=== PATIENT | female | born 1955 | race Caucasian/White ===

== ENCOUNTER 2021-02-27 08:15 | Outpatient (RCR) | payer MEDICARE, SELFPAY ==
[2021-02-13 08:08] VITALS: TEMP 36.5
--- NOTE | 2021-02-13 15:00 | HP.PCM_ITS ---
History of Present Illness Date of Service: 02/13/21 Chief Complaint: nonhealing wound right buttock History of Wound: Kelly is a 66 yo woman that presents the wound healing center today for evaluation and treatment of a nonhealing wound to her right buttock. She is referred by Parviz Mon CNP. Kelly reports that this started as a rash that then developed into what wounds like a draining abscess approximately 6 weeks ago. She was seen initially at the ER in [place] and was treated with antibiotic (Bactrim) with some improvement but continued open wound after the area drained. She was seen at urgent care and advised to use Hibiclens once weekly and apply mupirocin ointment to the wound daily. Bactrim was again prescribed and she completed this approximately 1 week ago. The wound still remained open so she sought the care of her PCP who performed a wound culture and referred her here for further treatment and evaluation. She reports there is mild drainage from the wound, no odor. Denies fever or chills. She has not had any problems with healing wounds in the past. She follows a mainly vegan diet. She has been avoiding pressure to her buttock, mainly because of pain with sitting and pressure to the area. [facility] Medical History (Updated 02/13/21 @ 15:[address] Kristin Meyer DO) MRSA cellulitis Home Medications metoprolol succinate 1 PO DAILY 02/13/21 [History Last Taken 02/13/21 07:00] Allergy/AdvReac Type Severity Reaction Status Date / Time No Known Allergies Allergy Verified 02/13/21 15:17 no significant family history no surgical history Social History (Updated 02/13/21 @ 15:[address] Kristin Meyer DO) household members: none current occupational status: retired current gender identity: female Smoking Status: Never smoker alcohol intake: never substance use type: does not use diet: vegan ROS Constitutional Constitutional: Denies chills, fever(s) or headache(s) Eyes Eyes: Denies blurry vision or loss of vision ENT HEENT: Denies dizziness or headache(s) Cardiovascular Cardiovascular: Denies chest pain, dizziness, dyspnea, edema or palpitations Respiratory/Chest Respiratory/Chest: Denies cough or dyspnea Gastrointestinal Gastrointestinal: Reports loose stools; Denies abdominal pain, diarrhea, nausea, rectal bleeding or vomiting Genitourinary Genitourinary: Denies dysuria or polyuria Musculoskeletal Musculoskeletal: Denies joint pain Integumentary Integumentary: Reports wounds Neurologic Neurologic: Denies dizziness, memory loss or weakness Psychiatric Psychiatric: Denies suicidal thoughts Endocrine Endocrinology: Denies polydipsia, polyphagia or polyuria Hematologic/Lymphatic Hematologic/Lymphatic: Denies easy bleeding or easy bruising Vital Signs Vital Signs Vital Signs: 02/13/21 08:08 Temperature 97.7 F L Temperature Source Temporal Blood Pressure Source Monitor Blood Pressure Position Sitting Blood Pressure Location Left Arm Physical Exam Const alert, oriented x3, no apparent distress, healthy appearing and well nourished General Appearance: cooperative, comfortable and well developed HEENT normocephalic and head/scalp atraumatic Mouth: oral and palatal mucosa normal Eyes PERRL and EOMs intact bilaterally Neck no lymphadenopathy General: normal visual inspection Lymph Lymphatic: no lymphedema noted Resp normal respiratory effort Effort and Inspection: able to speak in complete sentences Auscultation: clear to auscultation bilaterally Cardio regular rate and regular rhythm GI soft to palpation and non-tender Skin Wounds: wounds noted Wound Narrative: as in clinical panel Neuro oriented x3 Psych thought process normal, cooperative and affect normal Debridement Note Debridement Note Post-Debridement Measurements and Additional Note: Post-Debridement Measurements/Treatment - Nurse 1 - General Ulcer Assessment Start: 02/13/21 08:08 Freq: Status: Active Protocol: [email or web address].[email or web address] Activity Type Activity Date Activity User E-Sign Co-Sign Detail Recorded Client Recorded Date Recorded By Document 02/13/21 08:08 CLAUDIA [id number] 02/13/21 08:27 CLAUDIA 02/13/21 08:08 - Today's Visit Information Type of service Follow-up 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 Any new allergies or adverse reactions No Had a fall/change in ADL's that may No increase risk of falls Signs or symptoms of abuse and/or No neglect since last visit Have you been in the hospital since your No last visit? Has dressing in place as prescribed Yes Has compression in place as prescribed N/A Has offloadiing in place as prescribed N/A Experienced any changes in pain level or No management Left Footwear Regular Shoe Right Footwear Regular Shoe Pain Scale: 0-10 Numeric Is Patient Pain Free? Yes - Nurse 1 - General Ulcer Measurement Start: 02/13/21 08:08 Freq: Status: Active Protocol: Activity Type Activity Date Activity User E-Sign Co-Sign Detail Recorded Client Recorded Date Recorded By Document 02/13/21 08:08 KR [id number] 02/13/21 08:27 KR 02/13/21 08:08 Wound Center Nurse 1 #1 Right Buttock -Current Size (cm) - Length 0.7 -Current Size (cm) - Width 0.4 -Current Size (cm) - Depth 0.3 -Total Square Cm 0.28 -Exudate Amt Medium -Exudate Type Serosanguineous -Wound Margin Distinct, Outline Attached -Granulation Amt Medium (34-66%) -Granulation Quality Red -Necrosis Amt Medium (34-66%) -Necrotic Tissue Type Adherent Slough -Texture (Kimberly-wound Skin Appearance) Assessed, Scarring -Moisture (Kimberly-wound Skin Appearance) No Abnormality, Assessed -Color (Kimberly-wound Skin Appearance) No Abnormality, Assessed -Temperature (Kimberly-wound Skin No Abnormality Appearance) (Pt Warm) -Tenderness on Palpation (Kimberly-wound No Skin Appearance) -Ulcer Cleansing Rinsed/ Irrigated with Saline -Foul Odor after Cleansing No -Anesthetic Used 5% Lidocaine Gel - Nurse 2 - General Ulcer CM Notes Start: 02/13/21 08:08 Freq: Status: Active Protocol: Activity Type Activity Date Activity User E-Sign Co-Sign Detail Recorded Client Recorded Date Recorded By Document 02/13/21 08:48 MW [id number] 02/13/21 09:09 MW 02/13/21 08:48 Wound Center Nurse 2 -Time 08:48 -Correct Patient Yes -Correct Side, Site, Position Yes -Correct Procedure Yes -Procedure Performed Yes -Type of Procedure Debridement -Clinical Debridement Subcutaneous -Tissue Removed Subcutaneous -Post Debridement (cm) - Length 0.9 -Post Debridement (cm) - Width 0.7 -Post Debridement (cm) - Depth 0.5 -Total Square (Post) (cm) 0.63 -Area of Debridement (cm) - Length 0.9 -Area of Debridement (cm) - Width 0.7 -Total Square (Area) (cm) 0.63 -Tunneling No -Undermining/Tunneling No -Circular Undermining No -Wound/Ulcer Outcome Not Healed -Ulcer Cleansing Rinsed/ Irrigated with Saline -Foul Odor after Cleansing No -Bioengineered Tissue No -Bleeding Controlled with Pressure -Offloading No -Treatment Response Procedure Tolerated Well -Debridement - Subq, 1st 20sq cm Yes Pain Scale: 0-10 Numeric Is Patient Pain Free? Yes - Nurse 3 - General Ulcer D/C NN Start: 02/13/21 08:08 Freq: Status: Active Protocol: Activity Type Activity Date Activity User E-Sign Co-Sign Detail Recorded Client Recorded Date Recorded By Document 02/13/21 09:17 MW [id number] 02/13/21 09:18 MW 02/13/21 09:17 Wound Care Nurse 3 #1 Right Buttock -Ulcer Cleansing Rinsed/ Irrigated with Saline -Foul Odor after Cleansing No -Negative Pressure Wound Therapy N/A -Primary Dressing Applied Promogran Nita Matter -Primary Dressing Covered/Secured with Dry Gauze, Secured with Tape -Promogran Nita Matter 1 Treatment Response Procedure Tolerated Well Pain Scale: 0-10 Numeric Is Patient Pain Free? Yes Teaching: Wound Center Dressing Your Wound -Person Taught Patient -Teaching Method Discussion, Demonstration -Response to teaching Verbalize understanding WC - Visit Discharge Discharge Condition Stable Ambulatory Status Ambulatory Transportation Private Auto Accompanied by self Medication Reconcilliation completed & No provided to patient/care provider Clinical Summary of Care Provided Yes Wound debrided: right buttock Laterality: Right Type of Debridement: Excisional debridement Anesthesia Used: 4% Lidocaine Solution and 5% Lidocaine Gel Depth: Down to and including healthy tissue and in the subcutaneous layer Percentage of wound debrided: 100 Instrument Used: 3mm curette Tissue Removed: Yellow slough, devitalized tissue Severity: Fat Layer Exposed Amount of bleeding with debridement: Mild Bleeding Controlled with: Compression and gauze Patient tolerated procedure: Patient tolerated procedure well Assessment/Plan Assessment/Plan (1) HTN (hypertension): CODE(S): I10 - Essential (primary) hypertension QUALIFIERS: Hypertension type: primary hypertension Qualified Code(s): I10 - Essential (primary) hypertension (2) Nonhealing nonsurgical wound with fat layer exposed: CODE(S): T14.8XXA - Other injury of unspecified body region, initial encounter (3) MRSA (methicillin resistant staph aureus) culture positive: CODE(S): Z22.322 - Carrier or suspected carrier of Methicillin resistant Staphylococcus aureus PLAN: Kelly's wound was evaluated and debrided today and wound culture from her PCP reviewed. Her wound was debrided today as above in clinical panel and is likely not healing well due to imbalance of moisture and possible unresolved infection. The cause of her wound was cellulitis and abscess from MRSA. Her wound will be dressed every other day with Nita and covered with gauze and tape. She was encouraged to increase protein intake and to avoid pressure to her buttock. She also was started on another course of Bactrim for positive wound cultures from last week from her PCP. She was advised to call with any fevers, chills, increased pain, drainage or odor. She will follow up in 1 week for wound care.
[2021-02-20 08:19] VITALS: BP 145/84; PULSE 62; RESP 18; TEMP 36.9
--- NOTE | 2021-02-20 10:20 | PN.PCM_ITS ---
History of Present Illness Date of Service: 02/20/21 Chief Complaint: nonhealing wound right buttock History of Wound: Kelly is a 66 yo woman that presents the wound healing center today for evaluation and treatment of a nonhealing wound to her right buttock. She is referred by Parviz Mon CNP. Kelyl reports that this started as a rash that then developed into what wounds like a draining abscess approximately 6 weeks ago. She was seen initially at the ER in [place] and was treated with antibiotic (Bactrim) with some improvement but continued open wound after the area drained. She was seen at urgent care and advised to use Hibiclens once weekly and apply mupirocin ointment to the wound daily. Bactrim was again prescribed and she completed this approximately 1 week ago. The wound still remained open so she sought the care of her PCP who performed a wound culture and referred her here for further treatment and evaluation. She reports there is mild drainage from the wound, no odor. Denies fever or chills. She has not had any problems with healing wounds in the past. She follows a mainly vegan diet. She has been avoiding pressure to her buttock, mainly because of pain with sitting and pressure to the area. Subjective Subjective Kelly is here today for follow up of a right buttock wound. She tolerated treatment with Nita to the wound and has been changing it every other day. She moistened it on when she changed it. She is tolerating antibiotic treatment. Denies any increased drainage, pain or erythema. Objective Data Objective Data Vital Signs: Vital Signs Temp Pulse Resp BP 98.4 F 62 18 145/84 H 02/20/21 08:19 02/20/21 08:19 02/20/21 08:19 02/20/21 08:19 Physical Exam Const alert, oriented x3, no apparent distress, healthy appearing and well nourished General Appearance: cooperative, comfortable and well developed HEENT normocephalic and head/scalp atraumatic Eyes PERRL and EOMs intact bilaterally Neck no lymphadenopathy General: normal visual inspection Lymph Lymphatic: no lymphedema noted Resp normal respiratory effort Effort and Inspection: able to speak in complete sentences Auscultation: clear to auscultation bilaterally Cardio regular rate and regular rhythm GI soft to palpation and non-tender Skin Wounds: wounds noted Wound Narrative: as in clinical panel Neuro oriented x3 Psych thought process normal, cooperative and affect normal Debridement Note Debridement Note Post-Debridement Measurements and Additional Note: Post-Debridement Measure ments/Treatment - Nurse 1 - General Ulcer Assessment Start: 02/13/21 08:08 Freq: Status: Active Protocol: ДМИТРИЙ Activity Type Activity Date Activity User E-Sign Co-Sign Detail Recorded Client Recorded Date Recorded By Document 02/13/21 08:08 KR [id number] 02/13/21 08:27 KR Document 02/20/21 08:19 DL [id number] 02/20/21 08:24 DL 02/13/21 02/20/21 08:08 08:19 WC - Today's Visit Information Type of service Follow-up Visit Follow-up Visit (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 (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 ) ) Arrival Mode Ambulatory Ambulatory Transfer Assistance None Patient Identification Verified (Name & Yes Yes ) Patient Requires Transmission-Based No Precautions Vital Signs Temperature (97.8 F-99.1 F) 97.7 F L 98.4 F Temperature Source Temporal Temporal Pulse Rate (60-100) 62 Pulse Location Monitor Monitor Respiratory Rate (12-18) 18 Respiratory rate source Observation Blood Pressure (90/60-120/80) 145/84 H Blood Pressure Mean (mm Hg) 104 Source Monitor Monitor Position Sitting Blood Pressure Location Left Arm History Since Last Visit- (Skip if this is Patient's initial visit) Have you changed medications since your No No last visit? Any new allergies or adverse reactions No No Had a fall/change in ADL's that may No No increase risk of falls Signs or symptoms of abuse and/or No No neglect since last visit Have you been in the hospital since your No No last visit? Has dressing in place as prescribed Yes Yes Has compression in place as prescribed N/A N/A Has offloadiing in place as prescribed N/A Yes Experienced any changes in pain level or No No management Left Footwear Regular Shoe Right Footwear Regular Shoe Pain Scale: 0-10 Numeric Is Patient Pain Free? Yes ABBIE - Nurse 1 - General Ulcer Measurement Start: 02/13/21 08:08 Freq: Status: Active Protocol: Activity Type Activity Date Activity User E-Sign Co-Sign Detail Recorded Client Recorded Date Recorded By Document 02/13/21 08:08 KR [id number] 02/13/21 08:27 KR Document 02/20/21 08:19 DL [id number] 02/20/21 08:24 DL 02/13/21 02/20/21 08:08 08:19 Wound Center Nurse 1 #1 Right Buttock -Current Size (cm) - Length 0.7 0.4 -Current Size (cm) - Width 0.4 0.3 -Current Size (cm) - Depth 0.3 0.4 -Total Square Cm 0.28 0.12 -Photo Taken No -Exudate Amt Medium Small -Exudate Type Serosanguineous Serosanguineous -Wound Margin Distinct, Distinct, Outline Outline Attached Attached -Granulation Amt Medium (34-66%) -Granulation Quality Red Hyper- granulation, [place] -Necrosis Amt Medium (34-66%) Small (1-33%) -Necrotic Tissue Type Adherent Slough Adherent Slough -Structure Exposed N/A -Texture (Kimberly-wound Skin Appearance) Assessed, Scarring Scarring -Moisture (Kimberly-wound Skin Appearance) No Abnormality, No Abnormality Assessed -Color (Kimberly-wound Skin Appearance) No Abnormality, Erythema Assessed -Temperature (Kimberly-wound Skin No Abnormality No Abnormality Appearance) (Pt Warm) (Pt Warm) -Tenderness on Palpation (Kimberly-wound No No Skin Appearance) -Ulcer Cleansing Rinsed/ Wound Cleanser Irrigated with Saline -Foul Odor after Cleansing No No -Anesthetic Used 5% Lidocaine 4% Lidocaine Gel Solution WC - Nurse 2 - General Ulcer CM Notes Start: 02/13/21 08:08 Freq: Status: Active Protocol: Activity Type Activity Date Activity User E-Sign Co-Sign Detail Recorded Client Recorded Date Recorded By Document 02/13/21 08:48 MW [id number] 02/13/21 09:09 MW Document 02/20/21 08:44 MW [id number] 02/20/21 08:52 MW 02/13/21 02/20/21 08:48 08:44 Wound Center Nurse 2 #1 Right Buttock -Time 08:48 08:44 -Correct Patient Yes Yes -Correct Side, Site, Position Yes Yes -Correct Procedure Yes Yes -Procedure Performed Yes Yes -Type of Procedure Debridement Debridement -Clinical Debridement Subcutaneous Subcutaneous -Tissue Removed Subcutaneous Subcutaneous -Post Debridement (cm) - Length 0.9 0.5 -Post Debridement (cm) - Width 0.7 0.3 -Post Debridement (cm) - Depth 0.5 0.2 -Total Square (Post) (cm) 0.63 0.15 -Area of Debridement (cm) - Length 0.9 0.5 -Area of Debridement (cm) - Width 0.7 0.3 -Total Square (Area) (cm) 0.63 0.15 -Tunneling No No -Undermining/Tunneling No No -Undermining/Tunneling Starts #2 (O' 7 clock) -Undermining/Tunneling Ends #2 (O' 12 clock) -Maximum Distance #2 (cm) 0.3 -Circular Undermining No No -Wound/Ulcer Outcome Not Healed Not Healed -Ulcer Cleansing Rinsed/ Rinsed/ Irrigated with Irrigated with Saline Saline -Foul Odor after Cleansing No No -Bioengineered Tissue No No -Bleeding Controlled with Pressure Pressure -Offloading No No -Treatment Response Procedure Procedure Tolerated Well Tolerated Well -Debridement - Subq, 1st 20sq cm Yes Yes Pain Scale: 0-10 Numeric Is Patient Pain Free? Yes Yes WC - Nurse 3 - General Ulcer D/C NN Start: 02/13/21 08:08 Freq: Status: Active Protocol: Activity Type Activity Date Activity User E-Sign Co-Sign Detail Recorded Client Recorded Date Recorded By Document 02/13/21 09:17 MW [id number] 02/13/21 09:18 MW Document 02/20/21 08:52 MW [id number] 02/20/21 08:53 MW 02/13/21 02/20/21 09:17 08:52 Wound Care Nurse 3 #1 Right Buttock -Ulcer Cleansing Rinsed/ Rinsed/ Irrigated with Irrigated with Saline Saline -Foul Odor after Cleansing No No -Negative Pressure Wound Therapy N/A N/A -Primary Dressing Applied Promogran Promogran Nita Matter Nita Matter -Primary Dressing Covered/Secured with Dry Gauze, Dry Gauze, Secured with Secured with Tape Tape -Promogran Niat Matter 1 1 Treatment Response Procedure Procedure Tolerated Well Tolerated Well Pain Scale: 0-10 Numeric Is Patient Pain Free? Yes Yes Teaching: Wound Center Dressing Your Wound -Person Taught Patient Patient -Teaching Method Discussion, Discussion Demonstration -Response to teaching Verbalize Verbalize understanding understanding WC - Visit Discharge Discharge Condition Stable Stable Ambulatory Status Ambulatory Ambulatory Transportation Private Auto Private Auto Accompanied by self self Medication Reconcilliation completed & No No provided to patient/care provider Clinical Summary of Care Provided Yes Yes Wound debrided: right buttock Laterality: Right Type of Debridement: Excisional debridement Anesthesia Used: 4% Lidocaine Solution and 5% Lidocaine Gel Depth: Down to and including healthy tissue and in the subcutaneous layer Percentage of wound debrided: 100 Instrument Used: 3mm curette Tissue Removed: Yellow slough, devitalized tissue Severity: Fat Layer Exposed Amount of bleeding with debridement: Mild Bleeding Controlled with: Pressure Patient tolerated procedure: Patient tolerated procedure well Assessment/Plan Assessment/Plan (1) HTN (hypertension): CODE(S): I10 - Essential (primary) hypertension QUALIFIERS: Hypertension type: primary hypertension Qualified Code(s): I10 - Essential (primary) hypertension (2) Nonhealing nonsurgical wound with fat layer exposed: CODE(S): T14.8XXA - Other injury of unspecified body region, initial encounter (3) MRSA (methicillin resistant staph aureus) culture positive: CODE(S): Z22.322 - Carrier or suspected carrier of Methicillin resistant Staphylococcus aureus PLAN: Kelly's wound was evaluated and debrided today and has decreased in size by half. Her wound was debrided today as above in clinical panel. The cause of her wound was cellulitis and abscess from MRSA. Her wound will continue to be dressed every other day with Nita for mild drainage and covered with gauze and tape. She was encouraged to increase protein intake and to avoid pressure to her buttock. She is tolerating Bactrim for positive wound cultures. She was advised to call with any fevers, chills, increased pain, drainage or odor. She will follow up in 1 week for wound care.
[2021-02-27 08:23] VITALS: BP 168/77; PULSE 60; RESP 18; TEMP 36.4
--- NOTE | 2021-02-27 09:58 | PN.PCM_ITS ---
History of Present Illness Date of Service: 02/27/21 Chief Complaint: nonhealing wound right buttock History of Wound: Kelly is a 66 yo woman that presents the wound healing center today for evaluation and treatment of a nonhealing wound to her right buttock. She is referred by Parviz Mno CNP. Kelly reports that this started as a rash that then developed into what wounds like a draining abscess approximately 6 weeks ago. She was seen initially at the ER in [place] and was treated with antibiotic (Bactrim) with some improvement but continued open wound after the area drained. She was seen at urgent care and advised to use Hibiclens once weekly and apply mupirocin ointment to the wound daily. Bactrim was again prescribed and she completed this approximately 1 week ago. The wound still remained open so she sought the care of her PCP who performed a wound culture and referred her here for further treatment and evaluation. She reports there is mild drainage from the wound, no odor. Denies fever or chills. She has not had any problems with healing wounds in the past. She follows a mainly vegan diet. She has been avoiding pressure to her buttock, mainly because of pain with sitting and pressure to the area. Subjective Subjective Kelly is here today for follow up of a right buttock wound. She tolerated treatment well this week. She is healed today. Objective Data Objective Data Vital Signs: Vital Signs Temp Pulse Resp BP 97.6 F L 60 18 168/77 H 02/27/21 08:23 02/27/21 08:23 02/27/21 08:23 02/27/21 08:23 Physical Exam Const alert, oriented x3, no apparent distress, healthy appearing and well nourished General Appearance: cooperative, comfortable and well developed HEENT normocephalic and head/scalp atraumatic Eyes PERRL and EOMs intact bilaterally Neck no lymphadenopathy General: normal visual inspection Lymph Lymphatic: no lymphedema noted Resp normal respiratory effort Effort and Inspection: able to speak in complete sentences Auscultation: clear to auscultation bilaterally Cardio regular rate and regular rhythm GI soft to palpation and non-tender Skin Wounds: wounds noted Wound Narrative: as in clinical panel Neuro oriented x3 Psych thought process normal, cooperative and affect normal Debridement Note Debridement Note No debridement was completed: No debridement was completed today (wound is healed) Assessment/Plan Assessment/Plan (1) HTN (hypertension): CODE(S): I10 - Essential (primary) hypertension QUALIFIERS: Hypertension type: primary hypertension Qualified Code(s): I10 - Essential (primary) hypertension (2) Nonhealing nonsurgical wound with fat layer exposed: CODE(S): T14.8XXA - Other injury of unspecified body region, initial encounter (3) MRSA (methicillin resistant staph aureus) culture positive: CODE(S): Z22.322 - Carrier or suspected carrier of Methicillin resistant Staphylococcus aureus PLAN: Kelly's wound was evaluated and is healed today. She will be discharged from the wound center today. It has been a pleasure to treat her. Thank you for the kind referral.
== END 2021-02-27 08:58 | disposition home or self-care (01) ==
LOC: WC 08:15
PROVIDERS: PCP Nurse Practitioner Family; Visit Provider Family Medicine
DX: T81.89XA Other complications of procedures, not elsewhere classified, initial encounter (principal); S30.91XD Unspecified superficial injury of lower back and pelvis, subsequent encounter; Z22.322 Carrier or suspected carrier of Methicillin resistant Staphylococcus aureus; I10 Essential (primary) hypertension; Z79.899 Other long term (current) drug therapy
CPT/HCPCS: 11042; 99203; G0463